=== PATIENT | male | born 1945 | race Caucasian/White ===

== ENCOUNTER → 2020-01-24 | Outpatient (CLI) | payer OTHER, MEDICARE ==
[~2020-01-24] MED LIST: ACID REDUCER20 MG PO; ALLEGRA ALLERG180 MG PO; AVODART0.5 MG PO; BRIMONIDINE TART5 ML OPHTHALMIC; FLOMAX0.4 MG PO; LATANOPROST 0.2.5 ML OPHTHALMIC; TURMERIC500 M2 PO; VITAMIN D350 MCG PO
== END ==
LOC: LAB 11:48
PROVIDERS: ATTEND Radiology Radiation Oncology
DX: Z01.812 Encounter for preprocedural laboratory examination (principal); Z20.828 Contact with and (suspected) exposure to other viral communicable diseases

== ENCOUNTER 2020-01-27 06:06 | Observation (INO) | payer OTHER, MEDICARE ==
[2020-01-24 10:59] LABS: URINE BILIRUBIN NEGATIVE (Negative); URINE BLOOD NEGATIVE (Negative); URINE CLARITY CLEAR; URINE COLOR YELLOW; URINE GLUCOSE-RANDOM* NEGATIVE (Negative); URINE KETONES NEGATIVE (Negative); URINE LEUKOCYTES-REFLEX NEGATIVE (Negative); URINE NITRITE-REFLEX NEGATIVE (Negative); URINE PROTEIN (DIPSTICK) NEGATIVE (Negative); URINE SPECIFIC GRAVITY 1.015 (1.005-1.035); URINE UROBILINOGEN 0.2 E.U./dl (0.2-1.0)
[2020-01-24 11:00] LABS: HEMATOCRIT 43.4 % (42.0-52.0); HEMOGLOBIN 14.8 gm/dL (14.0-18.0); MCH 30.5 pg (26.0-34.0); MCHC 34.2 g/dL (28.0-37.0); RBC 4.87 mil/uL (4.50-6.00); RDW 14.2 % (10.5-14.5); WBC 5.1 thou/uL (4.0-11.0)
[2020-01-24 11:17] LABS: PROTIME 10.1 Seconds (9.3-11.4)
[2020-01-24 11:18] LABS: CALCIUM 8.7 mg/dL (8.5-10.1); CREATININE 1.3 mg/dL (0.7-1.3); POTASSIUM 4.1 mmol/L (3.5-5.1)
[~2020-01-27] VITALS: Ht 185.4 cm; Wt 95.3 kg
--- NOTE | ~2020-01-27 | O ---
[facility] [place] [address] OPERATIVE REPORT Name: FÁTIMA LACY Room #: 150-3 [facility] M.R.#: [id number] Admission: 01/27/20 Attend Phys: Johnathan Egan MD Discharge: Date of : 45 Report #: [id number] THIS REPORT FOR: cc: JOHANN - Family physician unknown FAM - Family physician unknown Johnathan Egan MD ~ CC: JOHANN unknown Johnathan Egan DATE OF SERVICE: 01/27/2020 PREOPERATIVE DIAGNOSIS: Left knee osteoarthritis. POSTOPERATIVE DIAGNOSIS: Left knee osteoarthritis. PROCEDURE: Left total knee arthroplasty using Navio robotic assistance. SURGEON: Johnathan Egan MD. HAMMER HEATER: Gracia Schrader PA-C INDICATIONS FOR HAMMER HEATER: Throughout the case, extensive retraction and manipulation of the knee was required. This was afforded to me by my medical library assistant. ANESTHESIA: LMA with an adductor canal block. IMPLANTS: [employer] size 6 Journey II BCS cobalt chrome femur, size 5 tibia, size 9 polyethylene and size 35 patella. TOURNIQUET TIME: 54 minutes. ESTIMATED BLOOD LOSS: 25 mL. COMPLICATIONS: None. SPECIMENS: None. CONDITION UPON LEAVING THE OPERATING ROOM: Stable. INDICATIONS FOR PROCEDURE: The patient is a 74-year-old gentleman with severe left knee osteoarthritis. He had failed conservative measures for this and after discussion with him, he elected for left total knee arthroplasty. DESCRIPTION OF PROCEDURE: Risks, benefits, alternatives, complications were discussed in detail with the patient including but not limited to risk of anesthesia; risk of damage to nerves, arteries, blood vessels; risk for [facility] [address] [place] [address] OPERATIVE REPORT Name: FÁTIMA LACY Room #: 150-3 [facility] M.R.#: [id number] Admission: 01/27/20 Attend Phys: Johnathan Egan MD Discharge: Date of : 45 Report #: [id number] infection, bleeding; risk for continued knee pain; need for reoperation. Informed consent was obtained from the patient. Left knee was appropriately marked in the preoperative holding area. IV Ancef was given for preoperative antibiotics. Adductor canal block was placed by anesthesia. He was brought to the operating room and placed in supine position on operating room table. LMA anesthesia was induced without complication. Tourniquet was placed on the left thigh. Left lower extremity was prepped and draped in normal sterile fashion. Timeout was performed properly identifying the patient and procedure as well as the instrumentation. All in the operating room were in agreement. Left lower extremity was exsanguinated, tourniquet was inflated. Tourniquet time was 54 minutes. Standard midline approach to the knee was made with 10 blade through the skin. Dissection was taken down sharply to the fascia. Deep flaps were developed medially and laterally. Fresh 10 blade was used to make a medial parapatellar arthrotomy and the knee was inspected. There was severe medial compartment osteoarthritis with moderate patellofemoral osteoarthritis. ACL and PCL were removed sharply. Reference pins were placed in the femur and the tibia and the knee was then digitally mapped using the [employer] robotic system. Intraoperative plan was made and we sized the size 6 femur with a size 5 tibia and a 10 spacer. After acceptance of the intraoperative plan, the distal femoral cut was made with a Navio bur. Distal femoral cutting block was pinned in place and chamfer cuts were made. Attention was turned to the tibia. Remainder of the menisci removed with Bovie cautery. Tibial resection guide was pinned in place using the Navio for placement and tibial resection was made. Flexion and extension gaps were then checked and found to have good balance in flexion and extension both medially and laterally. Tibia was sized, found to be a size 5. A size 5 tibial trial was placed, pinned and punched. Size 6 femoral trial was placed and the box cut was made. This was then trialed with a size 9 polyethylene. The size 9 polyethylene demonstrated 1-2 mm of laxity medially and 2-3 mm of laxity laterally throughout range of motion of the knee. 9 mm was resected from the posterior surface of the patella and a size 35 patellar trial button was placed. Knee was taken through range of motion, found to be stable, found to have good patellar tracking. Trial components were removed. Bony ends were thoroughly irrigated with normal saline. A final size 5 tibia, size 6 Journey II BCS cobalt chrome femur and a size 35 patella were cemented in place using standard cementation techniques. While the cement cured, a periarticular injection consisting of morphine, ropivacaine, epinephrine and Toradol was placed around the knee joint capsule. After the cement cured, tourniquet was deflated. Hemostasis was obtained with Bovie cautery. A final size 9 polyethylene was placed. A gram of vancomycin was placed deep in the joint. The fascia was closed with 0 Vicryl, skin was closed with 2-0 Vicryl, 3-0 Monocryl, Dermabond and a LUIZ dressing was applied. The patient tolerated this [facility] [address] [place] [address] OPERATIVE REPORT Name: FÁTIMA LACY Room #: 150-3 [facility] [place] Cr#: [id number] Admission: 01/27/20 Attend Phys: Johnathan Egan MD Discharge: Date of : 45 Report #: [id number] procedure well and went to the recovery room under care of anesthesia postoperatively. By: [id number] Johnathan Egan MD /nt
[2020-01-27 08:19] VITALS: BP 155/102
[2020-01-27 14:55] VITALS: BP 149/85
[2020-01-27 15:40] VITALS: BP 141/86
--- NOTE | 2020-01-27 17:18 | NUR ---
PATIENT ADMITTED FROM OR WITH LEFT TOTAL KNEE REPLACEMENT, LUIZ DRESSING, KNEE HIGH OBINNA HOSE, SCD'S, POLAR CARE IN PLACE. PATIENT ALERT AND ORIENTED X 4. PATIENT WORKED WITH PHYSICAL THERAPY/NELLIE. PATIENT C/O PAIN 3/10, ENCOURAGED TO TAKE PAIN MEDS BEFORE PAIN ESCALATES. PATIENT HAS LEFT HAND IV IN PLACE, IV FLUIDS STARTED. HEART RATE ELEVATED, REPORT GIVEN TO JABIER/RN TO NOTIFY THE DOCTOR IN REGARD TO ELEVATED HEART RATE. PATIENT VOIDING OK W/O DIFFICULTY. AT BEDSIDE, ADMISSION COMPLETED, REPORT GIVEN TO JABIER/YUE.
[2020-01-27 19:09] VITALS: BP 155/77
[2020-01-28 04:19] VITALS: BP 129/79
--- NOTE | 2020-01-28 06:16 | NUR ---
ASSUMED PT CARE AT 1900.PT ALERT AND COOPERATIVE WITH CARE.PT STILL RATING HIS PAIN AT 1/10.PT WAS ENCOURAGED TO TAKE HIS PAIN MED BEFORE GETTING UP WITH THERAPY.DRSG TO HIS KNEE INTACT. POLAR PACK,SCD AND OBINNA HOSE IN PLACE.PT C/O SORE THROAT,PHYSICIAN NOTIFIED,ORDER NOTED AND CARRIED OUT.CALL LIGHT WITHIN REACH.
[2020-01-28 06:22] LABS: HEMATOCRIT 33.8 % (42.0-52.0); HEMOGLOBIN 11.5 gm/dL (14.0-18.0); MCH 30.7 pg (26.0-34.0); MCHC 34.1 g/dL (28.0-37.0); MCV 89.9 fL (80.0-100.0); RBC 3.76 mil/uL (4.50-6.00); RDW 14.7 % (10.5-14.5); WBC 10.3 thou/uL (4.0-11.0)
[2020-01-28 07:30] VITALS: BP 132/91
[2020-01-28 08:39] VITALS: BP 132/91
--- NOTE | 2020-01-28 08:40 | NUR ---
ASSESSMENT: CM REVIEWED CHART AND SPOKE WITH PATIENT. PT IS ALERT AND ORIENTED X4. PT IS S/P TKR. PT IS FROM HOME WHERE HE LIVES WITH HIS . PT REPORTS HAVING TWO STEPS TO ENTER THE HOME WITH A HANDRAIL. PT REPORTS HE CAN SLEEP ON THE MAIN LEVEL IF NEEDED BUT REPORTS HAVING AN UPSTAIRS AND FINISHED BASEMENT WITH A FULL FLIGHT OF STEPS WITH HANDRAILS. PT DENIES HAVING A CANE OR WALKER BUT DOES HAVE A BEDSIDE COMMODE HE STATES. PT IS NEEDING A WALKER FOR HOME. CM DISCUSSED WITH PT AND HE HAS NO PREFERENCE OF [employer]. CM NOTIFIED [employer] WHO WILL DELIVER A WALKER TO PTS ROOM. PT REPORTS HE HAS OUTPATIENT THERAPY ARRANGED AT [facility] [place] IN [place], [place]. PT REPORTS NO FURTHER NEEDS FROM . PT WILL LIKELY DISCHARGE TODAY AFTER WORKING WITH THERAPY.
[2020-01-28] MEDS ORDERED: ASPIR 8181 MG PO (09:33)
[2020-01-28] MEDS ORDERED: HYDROCODON-ACE1 EAC7 PO (09:33)
[2020-01-28] MEDS ORDERED: NEURONTIN 300M300 M2 PO (09:34)
[2020-01-28] MEDS ORDERED: MS CONTIN15 MG PO (09:34)
[2020-01-28 11:00] VITALS: BP 132/91
--- NOTE | 2020-01-28 14:48 | NUR ---
Assumed care of pt. at 0700. Pt. was calm and cooperative. Pt. was excited for discharge and filled with questions for PT. Pt. was able to pass the stairs test with PT and was given discharge teaching and had discharge questions addressed. Pt. was discharged and left with and all belongings.
== END 2020-01-28 11:44 | disposition home or self-care (01) ==
LOC: OR 06:06 → TBA 06:12 → OR 06:12 → 4S 09:19 → OR 10:14 → 4S 01-28 11:44
PROVIDERS: ADMIT Orthopaedic Surgery; ATTEND Orthopaedic Surgery
DX: M17.12 Unilateral primary osteoarthritis, left knee (principal); Z79.899 Other long term (current) drug therapy
CPT/HCPCS: 27447; S2900; 50010; 50101; 50415; 50954; 51130; 51225; 51320; 53000; 53078; 54118; 56527; 56528; 57095; 57103; 57110; 57127; 57180; 57952; 62110; 62900; 64042; 70005